=== PATIENT | female | born 1990 | race Caucasian/White ===

== ENCOUNTER → 2016-04-11 | Outpatient (CLI) | payer OTHER ==
[2010-06-08 14:12] VITALS: BP 132/71
[2016-04-11 09:06] LABS: FREE T4 (FREE THYROXINE) 1.04 ng/dL (0.93-1.71)
== END ==
LOC: LAB 07:50
PROVIDERS: ATTEND Nurse Practitioner
DX: E16.2 Hypoglycemia, unspecified (principal); R51 Headache; R53.83 Other fatigue; G93.0 Cerebral cysts; F17.210 Nicotine dependence, cigarettes, uncomplicated; Z83.3 Family history of diabetes mellitus; Z83.49 Family history of other endocrine, nutritional and metabolic diseases
CPT/HCPCS: 36415; 80061; 82024; 82533; 82652; 84146; 84270; 84403; 84439; 84443; 84481

== ENCOUNTER → 2016-05-03 | Outpatient (CLI) | payer OTHER ==
[2010-06-08 14:12] VITALS: BP 132/71
--- NOTE | 2016-05-03 10:06 | DI ---
MRI MRA HEAD W/O CN,05/03/2016 8:24 AM: Clinical History: Headache on the top of the head. Previous Exam: November 24, 2008 Findings: Multiplanar MR images are obtained through the brain following an MRA protocol. Visualized portions of the [place] are unremarkable. The basilar artery and vertebral arteries are unremarkable. The distal internal carotid arteries are also normal. The anterior communicating artery is intact. The posterior communicating arteries are diminutive bila terally. There is no aneurysmal dilation. Impression: Normal MRA brain.
--- NOTE | 2016-05-03 10:28 | DI ---
MRI BRAIN W/O CN,05/03/2016 8:24 AM: Clinical History: Headache at the top of the head. Previous Exam: May 03, 2016 and November 24, 2008 Findings: Multiplanar MR images are obtained through the brain without contrast, and demonstrate normal, symmet guero ventricles. There is some prominence of the left temporal horn unchanged from the prior exam. There is no evidence of Chiari malformation. The parasellar region and the cerebellopontine angles are intact. There is no abnormal FLAIR signal. There is no abnormally restricted effusion. The intraorbital structures are unremarkable. The paranasal sinuses are unremarkable. Impression: Normal MRI brain.
== END ==
LOC: MRI 08:11
PROVIDERS: ATTEND Nurse Practitioner
DX: R51 Headache (principal)
CPT/HCPCS: 70544; 70551

== ENCOUNTER → 2016-06-24 | Outpatient (CLI) | payer OTHER ==
[2010-06-08 14:12] VITALS: BP 132/71
--- NOTE | 2016-06-24 09:53 | DI ---
ABDOMINAL ULTRASOUND, 06/24/2016 7:49 AM: Clinical History: Hypoglycemia. The patient does not have diabetes. Previous Exam: None at this facility. Scans are performed through the right and left upper quadrants in multiple projections. The gallbladder is well distended and has a normal wall thickness. There are multiple discrete tiny b right echos in the gallbladder that are "floating" in the bile. They measure approximately 2-3 mm in diameter and do not cause acoustical shadowing. They are consistent with either tiny gallstones or ch olesterol flakes. There is no Jacobsen's sign. These bright echos should easily pass through the common bile duct sphincter. If the clinical history still suggests gallbladder disease, consider follow-up with a Tc-99 common bile duct measures 4 The visualized portions of the right and left lobes of the l iver and the spleen are normal. Both kidneys are normal. There is "" lobulation of the left kidn ey, a normal variant. The head and body of the pancreas are visualized and that structure is normal. The IVC and aorta are normal. READIN. The visualized portions of the pancreas are normal. The tail of the pancreas was not visualized. 2. There are multiple bright echoes within the gallbladder seen only with agitation. These are consi stent with cholesterol flakes versus tiny gallstones. They should theoretically pass readily through the common bile duct sphincter. If further evaluation is required, consider a Tc-99m HIDA biliary sca n with fatty meal challenge. There is no Jacobsen's sign. The common bile duct measures 4 mm. 3. The liver, spleen, both kidneys, IVC, and aorta are normal.
== END ==
LOC: US 07:43
PROVIDERS: ATTEND Nurse Practitioner Women's Health
DX: E16.2 Hypoglycemia, unspecified (principal); F17.200 Nicotine dependence, unspecified, uncomplicated
CPT/HCPCS: 76700